=== PATIENT | female | born 1985 | race African-American/Black ===

== ENCOUNTER 2018-02-27 19:57 | Emergency (ER) | payer SELFPAY ==
[~2018-02-27] VITALS: Ht 180.3 cm; Wt 108.9 kg
[2018-02-27 20:45] VITALS: BP 123/76
[2018-02-27] MEDS ORDERED: Tylenol #3 tab (300mg/30mg) ORAL ONE (20:45)
--- NOTE | 2018-02-27 21:04 | Emergency Room Report ---
History of Present Illness General Chief Complaint: Pain Source: Patient (Jessica Winslow) Present Illness HPI 32-year-old female presents to the emergency department complaining of bilateral lower extremity swelling 5 days in addition to new onset posterior left calf pain 2 days. Patient also reports that she was concerned because when she woke up she had numbness to the back of her left calf. 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 Patient denies varicose veins, history of smoking, use of hormones, or recent travel. Patient states that she has taken rkdt-xmt-[id number] pain medications which only provide multiple relief. Patient denies previous history of lower extremity edema in the past. She denies fevers , chills, headaches, elevated blood pressure on the chest pain, shortness of breath or difficulty breathing. Denies and reports currently being on her cycle. She denies trauma or fall. Denies erythema. Pt. is primarily concerned with new onset calf pain. (Jessica Winslow) Allergies: Coded Allergies: ACETAMINOPHEN (Verified Adverse Reaction, Unknown, vomiting, 02/27/18) HYDROCODONE (Verified Adverse Reaction, Unknown, vomiting, 02/27/18) Patient History Past Medical History: see triage record Past Surgical History: none Pertinent Family History: none Last Menstrual Period: now Now: No Reviewed Nursing Documentation: PMH: Agreed (Jessica Winslow) Nursing Documentation-PMH Past Medical History: No Stated History (Jessica Winslow) Review of Systems All Other Systems: negative except mentioned in HPI (Jessica Winslow) Physical Exam Vital Signs Date Time Temp Pulse Resp B/P (MAP) Pulse Ox O2 Delivery O2 Flow Rate FiO2 02/27/18 20:25 97.7 60 16 117/76 98 Room Air 97.7 Sp02 EP Interpretation: reviewed, normal General Appearance: no apparent distress, alert, GCS 15, non-toxic Head: normocephalic, atraumatic ENT: hearing grossly normal, normal voice Neck: full range of motion Respiratory: lungs clear, normal breath sounds, speaking full sentences Cardiovascular #1: regular rate, rhythm, normal capillary refill, edema - mild/ 1+ non pitting edema to bilateral dorsal feet and ankles. Right ankle > Left. Cardiovascular #2: 2+ dorsalis pedis (R), 2+ dorsalis pedis (L) Musculoskeletal: back normal, gait/station normal, normal range of motion, other - Left Calf TTP, right ankle has more swellling than left, pt. reports previous fx. Neurologic: alert, oriented x3, responsive, motor strength/tone normal, sensory intact, speech normal, grossly normal Psychiatric: judgement/insight normal Skin: normal color, no rash, warm/dry, well hydrated Lymphatic: no adenopathy (Jessica Winslow) Medical Decision Making PA Attestation Dr. marcial is my supervising Physician whom patient management has been discussed with. (Jessica Winslow) Diagnostic Impression: Primary Impression: Peripheral edema Additional Impression: Pain of left calf ER Course 32-year-old female presents to the emergency department complaining of bilateral lower extremity swelling 5 days in addition to new onset posterior left calf pain 2 days. Patient also reports that she was concerned because when she woke up she had numbness to the back of her left calf. 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 Patient denies varicose veins, history of smoking, use of hormones, or recent travel. Patient states that she has taken nwlv-znm-tobqvoa pain medications which only provide multiple relief. Patient denies previous history of lower extremity edema in the past. She denies fevers , chills, headaches, elevated blood pressure on the chest pain, shortness of breath or difficulty breathing. Denies and reports currently being on her cycle. She denies trauma or fall. Denies erythema. Pt. is primarily concerned with new onset calf pain. Ddx considered but are not limited to Cellulitis, DVT, varicose vein, PAD, Venous insufficiency, benign peripheral edema just to name a few. Vital signs: are WNL, pt. is afebrile H&PE are most consistent with benign peripheral edema, will r/o DVT. ORDERS: -BMP: - Venous duplex US of Left LE: Negative for DVT ED INTERVENTIONS: None required at this time. DISCHARGE: At this time pt. is stable for d/c to home. Will provide printed patient care instructions, and any necessary prescriptions. Care plan and follow up instructions have been discussed with the patient prior to discharge. (Jessica Winslow) ER Course Please refer to the initial note for the history exam and presentation At this time patient's blood work is normal Ultrasound was negative for DVT Discussing with the patient she reports that she has spoken to her family member who is a physician sales assistant institutional sales and had been told about checking her liver test At this time patient had unfortunately bmp obtained for evaluation of kidney function Otherwise stable for outpatient follow-up for further pathology such as hepatic disease At this time does not currently have any vomiting or nausea Appears to have venous stasis And requires further close outpatient follow-up regarding this Labs Test 02/27/18 21:05 Sodium Level 140 MMOL/L (136-145) Potassium Level 4.0 MMOL/L (3.5-5.1) Chloride Level 109 MMOL/L (98-107) Carbon Dioxide Level 23 MMOL/L (21-32) Anion Gap 8 mmol/L (5-15) Blood Urea Nitrogen 15 mg/dL (-18) Creatinine 1.1 MG/DL (0.55-1.30) Estimat Glomerular Filtration Rate > 60 mL/min (>60) Glucose Level 103 MG/DL (74-106) Calcium Level 8.6 MG/DL (8.5-10.1) (Casie Issa DO) CT/MRI/US Diagnostic Results CT/MRI/US Diagnostic Results : Impression Left lower extremity ultrasound: negative for DVT (Casie Issa DO) Last Vital Signs Date Time Temp Pulse Resp B/P (MAP) Pulse Ox O2 Delivery O2 Flow Rate FiO2 02/27/18 20:25 97.7 60 16 117/76 98 Room Air 97.7 (Jessica Winslow) Status: improved (Casie Issa DO) Disposition: HOME, SELF-CARE Condition: Stable Scripts Furosemide* (LASIX*) 40 Mg Tablet 40 MG ORAL DAILY, #7 TAB Prov: Casie Issa DO 02/27/18 Referrals: NOT CHOSEN [facility]/,REFERRING (PCP) Patient Instructions: Peripheral Edema Additional Instructions: Take medications as directed. Follow up with a Primary Care Provider in 3-5 days, even if your symptoms have resolved. --Please review list of primary care clinics, if you do not already have a primary care provider Return sooner to ED if new symptoms occur, or current symptoms become worse. - Please note that this Emergency Department Report was dictated using [employer] map plotter operator technology software, occasionally this can lead to erroneous entry secondary to interpretation by the dictation equipment. Jessica Winslow Feb 27, 2018 21:04 Casie Issa DO Feb 28, 2018 04:16
[2018-02-27 21:57] LABS: ANION GAP 8 mmol/L (5-15); BLOOD UREA NITROGEN 15 mg/dL (7-18); CALCIUM 8.6 MG/DL (8.5-10.1); CARBON DIOXIDE 23 MMOL/L (21-32); CHLORIDE 109 MMOL/L (98-107); CREATININE 1.1 MG/DL (0.55-1.30); SODIUM 140 MMOL/L (136-145)
[2018-02-27 22:00] VITALS: BP 130/76
[2018-02-27] MEDS ORDERED: FUROSEMIDE40 MG ORAL (22:38)
[2018-02-27 23:30] VITALS: BP 130/76
== END 2018-02-27 23:30 | disposition home or self-care (01) ==
LOC: EMR 20:50
DX: R60.0 Localized edema (principal); M79.662 Pain in left lower leg; Z88.6 Allergy status to analgesic agent
CPT/HCPCS: 36415; 80048; 93971; 99284

== ENCOUNTER 2018-06-01 20:15 | Emergency (ER) | payer MEDICAID ==
[~2018-06-01] VITALS: Ht 180.3 cm; Wt 99.8 kg
[~2018-06-01 20:15] MED LIST: FUROSEMIDE40 MG ORAL
[2018-06-01 20:35] VITALS: BP 133/92
[2018-06-01] MEDS ORDERED: Ketorolac 30mg Inj IM ONE (21:15)
[2018-06-01] MEDS ORDERED: ALBUTEROL SULF8.5 GM INH (21:20)
[2018-06-01] MEDS ORDERED: ACETAMINOPHEN-1 EAC1 ORAL (21:20)
[2018-06-01 21:30] VITALS: BP 133/92
--- NOTE | 2018-06-01 23:41 | Emergency Room Report ---
History of Present Illness General Chief Complaint: Upper Respiratory Illness Source: Patient Present Illness HPI 33-year-old female presents ED for evaluation. Patient states she's had a cough wheezing for the last 2 days. History of bronchitis. Does not have an inhaler at this time. Denies smoking. Denies fevers or chills. States cough is dry. Denies chest pain. Also complaining of tooth pain for one week. States that she saw her dentist and was told she needed a root canal. States that her insurance did lapsed and she is waiting to have her insurance reinstated. Was placed on antibiotics. Denies fevers or chills. Denies sore throat. No other aggravating relieving factors. Denies any other associated symptoms Allergies: Coded Allergies: ACETAMINOPHEN (Verified Adverse Reaction, Unknown, vomiting, 02/27/18) HYDROCODONE (Verified Adverse Reaction, Unknown, vomiting, 02/27/18) Patient History Past Medical History: none Past Surgical History: none Pertinent Family History: none Social History: Denies: smoking, alcohol use, drug use Last Menstrual Period: 05/2018 Now: No - Unknown : 1 Para: 1 Reviewed Nursing Documentation: PMH: Agreed; PSxH: Agreed Nursing Documentation-PMH Hx Asthma: No - bronchitis Review of Systems All Other Systems: negative except mentioned in HPI Physical Exam Vital Signs Date Time Temp Pulse Resp B/P (MAP) Pulse Ox O2 Delivery O2 Flow Rate FiO2 06/01/18 20:24 98.6 97 15 142/91 97 Room Air 98.6 Sp02 EP Interpretation: reviewed, normal General Appearance: no apparent distress, alert, GCS 15, non-toxic Head: normocephalic Eyes: bilateral eye normal inspection, bilateral eye PERRL ENT: TMs + canals normal, other - multiple dental caries. cavity noted in L lower jaw Neck: full range of motion, supple/symm/no masses Respiratory: chest non-tender, lungs clear, normal breath sounds, speaking full sentences Cardiovascular #1: normal inspection Gastrointestinal: normal inspection Rectal: deferred Genitourinary: no CVA tenderness Musculoskeletal: normal inspection Neurologic: alert, oriented x3, responsive, motor strength/tone normal, sensory intact, speech normal Psychiatric: normal inspection Skin: normal inspection Lymphatic: normal inspection Medical Decision Making Diagnostic Impression: Primary Impression: Toothache Additional Impression: Bronchitis ER Course 33-year-old female presents ED complaining of tooth pain. Cough/wheezing differential - Cracked tooth, dental abscess, cavity, URI, bronchitis Patient placed on stretcher. After initial history, physical exam reveals a young female in mild distress. There are multiple dental caries on exam. There is a significant cavity in the left lower jaw. No fluctuance or discharge suggestive of abscess. No nuchal rigidity Lungs clear. We will prescribe inhaler for bronchitis. We will prescribe pain medications. Patient states she will follow-up with dentist this week given toradol in ED Diagnosis- toothache, bronchitis Stable and discharged to home prescription for tylenol #3, albuterol. Instructed to see dentist as a walk-in this week. Return to ED if symptoms recur or worse Last Vital Signs Date Time Temp Pulse Resp B/P (MAP) Pulse Ox O2 Delivery O2 Flow Rate FiO2 06/01/18 21:30 98.6 06/01/18 21:30 69 18 133/92 97 Room Air Status: improved Disposition: HOME, SELF-CARE Condition: Stable Scripts Albuterol Sulfate* (ALBUTEROL SULFATE MDI*) 8.5 Gm Hfa.aer.ad 2 PUFF INH Q6H, #1 EA 0 Refills Prov: Papo Myrick MD 06/01/18 Acetaminophen With Codeine (T#3) (TYLENOL #3 TAB*) Y Tab 1 TAB ORAL Q8H PRN for For Pain, #15 TAB Prov: Papo Myrick MD 06/01/18 Referrals: NOT CHOSEN [facility]/,REFERRING (PCP) Patient Instructions: Acute Bronchitis, [id number] Papo Myrick MD Jun 01, 2018 23:41
== END 2018-06-01 21:30 | disposition home or self-care (01) ==
LOC: EMR 21:22
DX: J40 Bronchitis, not specified as acute or chronic (principal); K08.89 Other specified disorders of teeth and supporting structures
CPT/HCPCS: 96372; 99283; J1885

== ENCOUNTER 2018-07-30 15:18 | Emergency (ER) | payer MEDICAID ==
[~2018-07-30] VITALS: Ht 180.3 cm; Wt 97.1 kg
[~2018-07-30 15:18] MED LIST changes: +ACETAMINOPHEN-1 EAC1 ORAL; +ALBUTEROL SULF8.5 GM INH
[2018-07-30] MEDS ORDERED: NKM (15:33)
[2018-07-30] MEDS ORDERED: Ketorolac 60mg Inj IM ONE (15:45)
[2018-07-30 16:17] VITALS: BP 128/81
--- NOTE | 2018-07-30 16:28 | Emergency Room Report ---
History of Present Illness General Chief Complaint: Headache Source: Patient Present Illness HPI 33-year-old female patient presents the ER complaining of headache since day. Reports headache was sudden onset earlier today while she was driving. States that she had to stop driving due to the pain. Patient was brought to the ER by her significant other. Denies history of migraines or headaches. Reports nausea and blurry vision. Denies eye pain or vision loss. Denies vomiting. Denies recent travel. Denies fever, chest pain, shortness of breath, abdominal pain. Denies neck pain. Allergies: Coded Allergies: HYDROCODONE (Verified Adverse Reaction, Unknown, vomiting, 02/27/18) Patient History Past Medical History: see triage record Last Menstrual Period: 06/2018 Reviewed Nursing Documentation: PMH: Agreed; PSxH: Agreed Nursing Documentation-PMH Past Medical History: No Stated History Hx Asthma: No - bronchitis Review of Systems All Other Systems: negative except mentioned in HPI Physical Exam Vital Signs Date Time Temp Pulse Resp B/P (MAP) Pulse Ox O2 Delivery O2 Flow Rate FiO2 07/30/18 15:29 98.4 76 16 128/81 100 Room Air Sp02 EP Interpretation: reviewed, normal General Appearance: well appearing, no apparent distress, alert, GCS 15, non- toxic Head: normocephalic, atraumatic Eyes: bilateral eye normal inspection, bilateral eye PERRL ENT: hearing grossly normal, normal pharynx, no angioedema, normal voice, TMs + canals normal, uvula midline, moist mucus membranes Neck: full range of motion, no meningismus, no bony tend Respiratory: lungs clear, normal breath sounds, no rhonchi, no respiratory distress, no accessory muscle use, no wheezing, speaking full sentences Cardiovascular #1: regular rate, rhythm, no edema Gastrointestinal: non tender, soft, no mass, non-distended, no guarding, no rebound Genitourinary: no CVA tenderness Musculoskeletal: back normal, digits/nails normal, gait/station normal, normal range of motion, non-tender Neurologic: alert, oriented x3, responsive, water treatment specialist III-XII nml as tested, motor strength/tone normal, SLR negative, sensory intact, cerebellar normal, normal gait, speech normal Psychiatric: mood/affect normal Skin: no rash Medical Decision Making PA Attestation Dr. Vergara is my supervising Physician whom patient management has been discussed with. Diagnostic Impression: Primary Impression: Headache ER Course Pt presents to ED c/o headache. DDX considered but are not limited to migraine, cluster PEDROZA, tension PEDROZA, meningitis, ICH, meningitis, HTN, influenza, UTI, sinusitis, temporal arteritis , SAH. Negative Kernig, negative Brudzinski, patient afebrile, low suspicion for meningitis. VITAL SIGNS are WNL, patient is afebrile ER COURSE Provide patient with Reglan, Benadryl, Toradol. CBC and CMP unremarkable, no anemia or signs of infection ESR not elevated, patient afebrile, low suspicion for temporal arteritis UA unremarkable CT head negative Discuss results with the patient. Provided patient with copy of results. Instructed patient to followup with PCP and discuss results of report with patient, discuss need for further treatment and referral. Patient reports pain improved. Patient is AOx3, neurologically intact, nontoxic appearing, and ambulatory. Follow-up with neurology. ER precautions given. DISCHARGE: At this time pt is stable for d/c to home. Patient is resting comfortably, in no acute distress, nontoxic appearing, talking and smiling. Will provide with patient care instructions and any necessary prescriptions. Patient to take medication as instructed. Care plan and follow-up instructions provided. Patient questions asked and answered. Patient instructed to follow-up with primary care provider in the next 3 days and discuss further referral with PCP to neurologist. ER precautions given. Patient instructed to return to ER immediately for any new or worsening of symptoms including but not limited to fever, neck stiffness , vision changes, and neurological symptoms. - Please note that this Emergency Department Report was dictated using [employer] punching machine operator technology software, occasionally this can lead to erroneous entry secondary to interpretation by the dictation equipment. Labs Test 07/30/18 16:16 White Blood Count 6.2 K/UL (4.8-10.8) Red Blood Count 4.44 M/UL (4.20-5.40) Hemoglobin 14.6 G/DL (12.0-16.0) Hematocrit 40.9 % (37.0-47.0) Mean Corpuscular Volume 92 FL (80-99) Mean Corpuscular Hemoglobin 32.9 PG (27.0-31.0) Mean Corpuscular Hemoglobin Concent 35.7 G/DL (32.0-36.0) Red Cell Distribution Width 10.6 % (11.6-14.8) Platelet Count 316 K/UL (150-450) Mean Platelet Volume 7.3 FL (6.5-10.1) Neutrophils (%) (Auto) 50.4 % (45.0-75.0) Lymphocytes (%) (Auto) 37.0 % (20.0-45.0) Monocytes (%) (Auto) 8.5 % (1.0-10.0) Eosinophils (%) (Auto) 2.5 % (0.0-3.0) Basophils (%) (Auto) 1.6 % (0.0-2.0) Erythrocyte Sedimentation Rate 2 MM/HR (0-20) Urine Color Yellow Urine Appearance Clear Urine pH 7 (4.5-8.0) Urine Specific [place] 1.010 (1.005-1.035) Urine Protein Negative (NEGATIVE) Urine Glucose (UA) Negative (NEGATIVE) Urine Ketones 1+ (NEGATIVE) Urine Blood Negative (NEGATIVE) Urine Nitrite Negative (NEGATIVE) Urine Bilirubin Negative (NEGATIVE) Urine Urobilinogen 1 MG/DL (0.0-1.0) Urine Leukocyte Esterase 1+ (NEGATIVE) Urine RBC 0-2 /HPF (0 - 2) Urine WBC 2-4 /HPF (0 - 2) Urine Squamous Epithelial Cells Moderate /LPF (NONE/OCC) Urine Bacteria Few /HPF (NONE) Urine HCG, Qualitative Negative (NEGATIVE) Sodium Level 137 MMOL/L (136-145) Potassium Level 3.9 MMOL/L (3.5-5.1) Chloride Level 105 MMOL/L (98-107) Carbon Dioxide Level 22 MMOL/L (21-32) Anion Gap 10 mmol/L (5-15) Blood Urea Nitrogen 8 mg/dL (7-18) Creatinine 1.0 MG/DL (0.55-1.30) Estimat Glomerular Filtration Rate > 60 mL/min (>60) Glucose Level 114 MG/DL (74-106) Calcium Level 8.6 MG/DL (8.5-10.1) Total Bilirubin 0.2 MG/DL (0.2-1.0) Aspartate Amino Transf (AST/SGOT) 22 U/L (15-37) Alanine Aminotransferase (ALT/SGPT) 36 U/L (12-78) Alkaline Phosphatase 59 U/L (46-116) C-Reactive Protein, Quantitative < 0.4 mg/dL (0.00-0.90) Total Protein 6.3 G/DL (6.4-8.2) Albumin 3.2 G/DL (3.4-5.0) Globulin 3.1 g/dL Albumin/Globulin Ratio 1.0 (1.0-2.7) CT/MRI/US Diagnostic Results CT/MRI/US Diagnostic Results : Imaging Test Ordered: CT head Impression Impression: No mass effect, edema or acute bleed. Last Vital Signs Date Time Temp Pulse Resp B/P (MAP) Pulse Ox O2 Delivery O2 Flow Rate FiO2 07/30/18 16:17 98.4 75 16 128/81 100 Room Air Status: improved Disposition: HOME, SELF-CARE Condition: Stable Scripts Ondansetron* (ZOFRAN*) 4 Mg Tablet 4 MG ORAL Q6H PRN for Nausea & Vomiting, #8 TAB Prov: Luiz Stephenson 07/30/18 Aspirin/Acetaminophen/Caffeine (EXCEDRIN MIGRAINE GELTAB) 1 Each Tablet 1 EACH PO TID, #30 TAB Prov: Luiz Stephenson 07/30/18 Patient Instructions: General Headache Without Cause, Tension Headache, Migraine Headache Additional Instructions: Followup with primary care provider in 3 -5 days. Discuss referral to neurology. Take medications as directed. Patient questions asked and answered. ER precautions given, patient instructed to return to ER immediately for any new or worsening of symptoms. Luiz Stephenson Jul 30, 2018 16:28
[2018-07-30 16:31] LABS: APPEARANCE,URINE CLEAR; BILIRUBIN, URINE NEGATIVE (NEGATIVE); GLUCOSE, URINE (UA) NEGATIVE (NEGATIVE); KETONES,URINE 1+ (NEGATIVE); LEUKOCYTE ESTERASE ,URINE 1+ (NEGATIVE); NITRITE,URINE NEGATIVE (NEGATIVE); PH,URINE 7 (4.5-8.0); PROTEIN,URINE NEGATIVE (NEGATIVE); UROBILINOGEN,URINE 1 MG/DL (0.0-1.0)
[2018-07-30 16:35] LABS: COLOR,URINE YELLOW
[2018-07-30 16:39] LABS: ANION GAP 10 mmol/L (5-15); BLOOD UREA NITROGEN 8 mg/dL (7-18); CALCIUM 8.6 MG/DL (8.5-10.1); CARBON DIOXIDE 22 MMOL/L (21-32); CHLORIDE 105 MMOL/L (98-107); POTASSIUM 3.9 MMOL/L (3.5-5.1); SODIUM 137 MMOL/L (136-145)
[2018-07-30 16:43] LABS: ALANINE AMINOTRANSFERASE 36 U/L (12-78); ALBUMIN 3.2 G/DL (3.4-5.0); ALKALINE PHOSPHATASE 59 U/L (46-116); ASPARTATE AMINO TRANSFERASE 22 U/L (15-37); BILIRUBIN,TOTAL 0.2 MG/DL (0.2-1.0)
[2018-07-30 16:55] LABS: BASOPHILS % (AUTO) 1.6 % (0.0-2.0); EOSINOPHILS % (AUTO) 2.5 % (0.0-3.0); HEMATOCRIT 40.9 % (37.0-47.0); HEMOGLOBIN 14.6 G/DL (12.0-16.0); MEAN CORPUSCULAR VOLUME 92 FL (80-99); MONOCYTES % (AUTO) 8.5 % (1.0-10.0); NEUTROPHILS % (AUTO) 50.4 % (45.0-75.0); PLATELET COUNT 316 K/UL (150-450); RED BLOOD COUNT 4.44 M/UL (4.20-5.40); RED CELL DISTRIBUTION WIDTH 10.6 % (11.6-14.8); WHITE BLOOD COUNT 6.2 K/UL (4.8-10.8)
--- NOTE | 2018-07-30 17:08 | Diagnostic Imaging Report ---
Indication: Headache Technique: Contiguous 5 mm thick transaxial imaging of the head obtained in a Siemens Sensation [address] scanner. Soft tissue and bone windows generated. Automatic Exposure Control was utilized. Total Dose length Product (DLP): 1245.[address] Dose Index Volume (CTDIvol): 70.38 mGy Comparison: none Findings: The size and configuration of the cortical sulci, basal cisterns, and ventricles are within normal limits for age. There is no mass effect, midline shift, or edema identified. There is no evidence of acute hemorrhage or abnormal intra-axial or extra-axial fluid collections. The bones and soft tissues are unremarkable. Impression: No mass effect, edema or acute bleed. The CT scanner at [facility] is accredited by the [employer] and the scans are performed using dose optimization techniques as appropriate to a performed exam including Automatic Exposure control.
[2018-07-30] MEDS ORDERED: ZOFRAN4 M3 ORAL (18:03)
[2018-07-30] MEDS ORDERED: EXCEDRIN MIGRA1 EACH PO (18:03)
[2018-07-30 19:20] VITALS: BP 128/81
== END 2018-07-30 19:22 | disposition home or self-care (01) ==
LOC: EMR 17:25
DX: R51 Headache (principal); Z88.8 Allergy status to other drugs, medicaments and biological substances
CPT/HCPCS: 36415; 70450; 80053; 81003; 81025; 85025; 85651; 86140; 96372; 96374; 99284; J2405

== ENCOUNTER 2019-03-30 17:44 | Emergency (ER) | payer MEDICAID ==
[~2019-03-30] VITALS: Ht 180.3 cm; Wt 114.3 kg
[~2019-03-30 17:44] MED LIST changes: +EXCEDRIN MIGRA1 EACH PO; +NKM; +ZOFRAN4 M3 ORAL
[2019-03-30 17:52] VITALS: BP 123/73
--- NOTE | 2019-03-30 17:52 | NUR ---
ED Nurse Note: PAtient walked into ED c/o 05/29 lower back pain due to suffering a fall last week, patient reports to being 37 weeks . states that the reason for her fall that she slipped. patient is alert and oriented x4, ambulatory with a steady gait, VSS
--- NOTE | 2019-03-30 18:14 | Emergency Room Report ---
History of Present Illness General Chief Complaint: Lower Back Pain or Injury Source: Patient (Jessica Winslow) Present Illness HPI 33 YO Female presents to the ED c/o 05/29 in severity persistent LBP s/p mechanical slip and fall 2 days ago. She was evaluated at [facility] & the day of the fall and was told the baby was fine, She was experiencing [place] contractions at that time. Pt. denies abdominal pain, contractions, vaginal bleeding or discharge. Pt. reports normal movement. She has been taking Tylenol PO with little relief of her symptoms. She reports pain at night when trying to lay down and stand up straight. pt. reports some relief with sitting upright. Denies N/V. Fevers or chills. Denies urinary symptoms. No other aggravating or relieving factors at this time. Denies paresthesias. Denies hitting her head or having an LOC. at 37 wks . Denies incontinence. (Jessica Winslow) Allergies: Coded Allergies: No Known Allergies (Unverified , 03/30/19) Patient History Past Medical History: see triage record Past Surgical History: none Pertinent Family History: none Last Menstrual Period: 06/2018 Now: Yes : 2 Para: 1 Reviewed Nursing Documentation: PMH: Agreed; PSxH: Agreed (Jessica Winslow) Nursing Documentation-PMH Past Medical History: No Stated History Hx Asthma: No - bronchitis (Jessica Winslow) Review of Systems All Other Systems: negative except mentioned in HPI (Jessica Winslow) Physical Exam Vital Signs Date Time Temp Pulse Resp B/P (MAP) Pulse Ox O2 Delivery O2 Flow Rate FiO2 03/30/19 17:49 99.0 74 17 123/73 (90) 96 Room Air Sp02 EP Interpretation: reviewed, normal General Appearance: no apparent distress, alert, GCS 15, non-toxic Head: normocephalic, atraumatic Eyes: bilateral eye normal inspection, bilateral eye PERRL ENT: hearing grossly normal, normal voice Neck: full range of motion Respiratory: chest non-tender, lungs clear, normal breath sounds, no wheezing, speaking full sentences Cardiovascular #1: regular rate, rhythm, no edema Gastrointestinal: non tender, soft, other - gravid Genitourinary: normal inspection, no CVA tenderness Musculoskeletal: gait/station normal, normal range of motion, tender - TTP L> Right with some midline ttp as well. FROM. no obvious step-offs. Neurologic: alert, oriented x3, responsive, motor strength/tone normal, sensory intact, speech normal, grossly normal Psychiatric: judgement/insight normal (Jessica Winslow) Medical Decision Making PA Attestation Dr. Alves is my supervising Physician whom patient management has been discussed with. (Jessica Winslow) Diagnostic Impression: Primary Impression: Low back pain Qualified Codes: M54.5 - Low back pain ER Course Pt. presents to ED c/o persistent LBP at 37 weeks . S/p fall 1 week ago with previous ED evaluation and FST monitoring. Ddx considered: epidural abscess, fracture, sprain/strain, meningitis, spinal chord injury, sciatica, cauda equina, Pyelonephritis, renal calculi just to name a few. Vital signs reviewed and are WNL during ED visit. Pt. is afebrile with no signs of infection No new symptoms, and denies recent trauma. No saddle anesthesia noted, Pt. denies incontinence Neurovascular is intact - Bedside US: HR at approx 136 BPM * Mild Tenderness to palpation to paraspinal muscles of the lower back with L> R with some midline tenderness. *Pt. describes pain today as moderate and radiates across the lower back. ORDERS: none warranted at this time. --Contraindicated in INTERVENTIONS: - Tylenol 650mg PO D/w Pt. that for further pain management or is it recommended to consult with her OBGYN. As radiation and most pain medications are contra-indicated during especially at the end of the 3rd trimester. PT. does not exhibit spinal chord injury or in acute distress which would warrant emergent imaging or aggressive pain management at this time. DISCHARGE: At this time pt. is stable for d/c to home. Will provide printed patient care instructions, and any necessary prescriptions. Care plan and follow up instructions have been discussed with the patient prior to discharge. (Jessica Winslow) ER Course Patient was seen and examined by me with physician regulatory assistant. Patient was noted to have low back pain after recent fall. She does not appear to have any evidence of neurologic deficit or active labor at this time. Patient appears to be stable for outpatient follow-up. She is advised to continue Tylenol as well as to use ice packs. She was to follow-up with [facility] for recheck. Patient is to return if worse. (Nicko Alves MD) Last Vital Signs Date Time Temp Pulse Resp B/P (MAP) Pulse Ox O2 Delivery O2 Flow Rate FiO2 03/30/19 17:52 99.0 79 17 123/73 96 Room Air (Jessica Winslow) Status: improved (Nicko Alves MD) Disposition: HOME, SELF-CARE Condition: Stable Scripts Acetaminophen (ACETAMINOPHEN 8 HOUR) 650 Mg Tablet.er 650 MG ORAL Q8H, #15 TAB Prov: Jessica Winslow 03/30/19 Patient Instructions: Back Pain in , Back Pain, Adult, What Do I Need to Know About Injuries During ?, [id number] Additional Instructions: Take medications as directed. Follow up with a OBGYN within 2 days, even if your symptoms have resolved. Return sooner to ED if new symptoms occur, or current symptoms become worse. - Please note that this Emergency Department Report was dictated using [employer] feeder technology software, occasionally this can lead to erroneous entry secondary to interpretation by the dictation equipment. Jessica Winslow Mar 30, 2019 18:14 Nicko Alves MD Mar 30, 2019 18:16
[2019-03-30] MEDS ORDERED: ACETAMINOPHEN650 M4 ORAL (18:31)
--- NOTE | 2019-03-30 18:50 | NUR ---
ED Nurse Note: Patient is being discharged from medical care. Patient awake, alert, oriented x 4. Regular, unlabored breathing noted. D/C instruction and prescription given and all questions were answered. No facial grimacing or guarding noted. Patient states she will f/u with [facility] [employer] tomorrow and has appt. Patient ambulated out with steady gait with all her belongings.
== END 2019-03-30 18:50 | disposition home or self-care (01) ==
LOC: EMR 18:32
DX: O26.893 Other specified pregnancy related conditions, third trimester (principal); Z3A.37 37 weeks gestation of pregnancy; M54.5 Low back pain
CPT/HCPCS: 99282